=== PATIENT | male | born 1980 | race Caucasian/White ===

== ENCOUNTER 2016-09-16 20:08 | Emergency (ER) | payer OTHER ==
[2016-09-16] MEDS ORDERED: KETOROLAC 30 MG/ML VIAL (J1885) As Ordered ONE (23:01)
[2016-09-16 23:08] LABS: BASO # 0.2 K/mm3 (0.0-0.2); BASO % 2.1 % (0.0-1.0); EOS # 0.1 K/mm3 (0.0-0.50); EOS % 1.9 % (0.0-3.0); LARGE UNSTAINED CELL # 0.1 K/mm3 (0.0-0.4); LARGE UNSTAINED CELL % 1.7 % (0.0-4.0); LYMPH # 2.4 K/mm3 (1.5-4.5); LYMPH % 31.8 % (24.0-44.0); MEAN CORPUSCULAR HEMOGLOBIN 28.4 pg (27.0-33.0); MEAN CORPUSCULAR VOLUME 88.9 fl (80.0-96.0); MONO # 0.4 K/mm3 (0.0-0.8); MONO % 5.9 % (0.0-5.0); NEUTROPHILS % 56.6 % (36.0-66.0); PLATELET COUNT, AUTOMATED 188 k/mm3 (150-450); RED CELL DISTRIBUTION WIDTH 14.1 % (11.5-14.5)
[2016-09-16 23:24] LABS: ANION GAP 5 MEQ/L (8-16); BLOOD UREA NITROGEN 23 MG/DL (7-18); CALCIUM LEVEL 8.9 MG/DL (8.5-10.1); CARBON DIOXIDE LEVEL 30 MEQ/L (21-32); CHLORIDE LEVEL 105 MEQ/L (98-107); GLOMERULAR FILTRATION RATE > 60.0 (>60); GLUCOSE, FASTING 88 MG/DL (70-105); POTASSIUM SERUM 3.5 MEQ/L (3.5-5.1); SODIUM LEVEL 140 MEQ/L (136-145)
[2016-09-16] MEDS ORDERED: ISOVUE-370 76% 100ML VIAL (Q9967) As Ordered ONE (23:26)
--- NOTE | 2016-09-17 00:20 | REPUSA ---
CLINICAL HISTORY: Assess for inguinal hernia TECHNIQUE : A CT of the abdomen and pelvis was performed following the administration of oral and int ravenous contrast from the level of the heart to the proximal femoral diaphyses. Multiplanar reformat s were also obtained in coronal and sagittal projections. COMPARISON: None FINDINGS: LOWER CHEST: The lung bases are clear. Heart is normal in size. No pleural or pericardial effusion is seen. LIVER: The liver is normal in size and contour. No hepatic lesion is seen. The portal and hepatic vei ns are patent. BILIARY SYSTEM: No intrahepatic biliary ductal dilatation is seen. The common duct is normal in calib er. The gallbladder is unremarkable with no focal or diffuse wall thickening seen. No pericholecystic fluid is seen. No calcified biliary calculi are identified. PANCREAS: The pancreas is normal in size, contour and density. No solid or cystic pancreatic mass is seen. No pancreatic duct dilatation is seen. SPLEEN: The spleen is normal in size and without focal lesion. ADRENALS: The adrenal glands are unremarkable. KIDNEYS/URETERS: The kidneys are normal in size and enhance normally. No calcified renal or ureteral calculi are seen. No suspicious renal mass or hydronephrosis is seen. The ureters are not dilated. URINARY BLADDER: The urinary bladder is unremarkable without calcified stone, wall thickening or dive rticula seen. PROSTATE/SEMINAL VESICLES: Within normal size limits with no suspicious lesion. AORTA AND ILIAC ARTERIES: No aneurysmal dilatation of the aorta or iliac arteries is seen. LYMPH NODES: No enlarged adenopathy. GASTROINTESTINAL: Stomach, duodenum , and bowel normal in caliber. PERITONEUM/RETROPERITONEUM: No ascites or suspicious fluid collection, extraluminal air, or suspiciou s mass. ABDOMINAL/PELVIC WALL: No hernia is identified. OSSEOUS STRUCTURES/SOFT TISSUES: No suspicious osseous lesion, acute fracture, or soft tissue abnorma lity. IMPRESSION : No acute abdominal pelvic abnormality identified; specifically no evidence of inguinal hernia.
[2016-09-17] MEDS ORDERED: traMADol 50 MG TAB As Ordered ONE (00:52)
--- NOTE | 2016-09-17 00:59 | EDDOCDS ---
Physician Documentation [facility] Name: Jeff Fairchild Age: 36 yrs Sex: Male : 1980 Arrival Date: 09/16/2016 Time: 20:08 Bed I3 / M3 Private MD: Other - Complete Info On Cds Disposition: 09/17/16 00:47 Discharged to Home/Self Care. Impression: Strain of muscle, fascia and tendon of abdomen. - Condition is Stable. - Discharge Instructions: Groin Strain. - Prescriptions for Ultram 50 mg Oral Tablet - take 1 tablet by ORAL route every 6 hours As needed MDD: 4 tabs; 6 tablet. - Medication Reconciliation, Local Pharmacy Hours form. - Follow up: Other - Complete Info On Cds; When: 2 - 3 days; Reason: Recheck today's complaints, Continuance of care. - Problem is new. - Symptoms have improved. Historical: - Allergies: no known allergies; - Home Meds: 1. none - PMHx: none; - PSHx: Knee surgery- Left; - Social history: Smoking status: Patient states was never smoker of tobacco. No barriers to communication noted, The patient speaks fluent [place]ian. - Family history: Not pertinent. - : The pt / caregiver states he / she is not on anticoagulants. Home medication list is obtained from the patient. - Exposure Risk Screening:: None identified. Vital Signs: 09/16 20:10 BP 145 / 84; Pulse 84; Resp 18 S; Temp 97.7(O); Pulse Ox 98% on R/A; Weight 88 kg / gr2 194.01 lbs (R); Height 71 in. (180.34 cm) (R); Pain 6/10; 23:30 Pain 6/10; dsf 09/17 00:50 BP 111 / 64; Pulse 58; Resp 16; Temp 96.9; Pulse Ox 98% ; Pain 6/10; ajs 09/16 20:10 Body Mass Index 27.06 (88.00 kg, 180.34 cm) gr2 MDM: 09/16 22:48 Financial registration complete. gjb 22:48 [facility] Payment Agreement was scanned into [employer] and attached to record. gjb 22:54 IV Saline Lock ordered. ck7 22:54 ketorolac 30 mg IVP once ordered. ck7 22:54 NS 0.9% 1000 ml IV at bolus once ordered. ck7 22:55 CBC with Diff Ordered. EDMS 22:55 MED Profile Ordered. EDMS 22:56 CT ABD & PELVIS: IV Contrast Only Ordered. EDMS 23:46 CBC with Diff Reviewed. ck7 23:46 MED Profile Reviewed. ck7 09/17 00:48 traMADol 50mg- 4 pack 1 packets PO Per package directions; Dispense with patient. Take ck7 per package instructions. ordered. Administered Medications: 09/16 23:06 Drug: ketorolac 30 mg [ketorolac 30 mg/mL (1 mL) injection solution (1 mL)] Route: IVP; dsf Site: right antecubital; 23:30 Follow up: Pain 01/30 Adult dsf 23:06 Drug: NS 0.9% 1000 ml [sodium chloride 0.9 % injection solution] Route: IV; Rate: dsf bolus; Site: right antecubital; Signatures: Dispatcher [employer] Eden TamayoRN RN rs3 Sanjay Huff, RPA-C RPA-Cck7 Froylan Grullon RN RN jmb Beck, Gabriela gjb Fuller, Desiree RN dsf The chart was reviewed and I authenticate all verbal orders and agree with the evaluation and treatment provided.Attachments: 22:48 [facility] [place] Payment Agreement florence MTDD
--- NOTE | 2016-09-17 00:59 | EDDOCDS ---
Nurse's Notes [facility] Name: Jeff Fairchild Age: 36 yrs Sex: Male : 1980 Arrival Date: 09/16/2016 Time: 20:08 Bed I3 / M3 Private MD: Chuck - Complete Info On Cds Diagnosis: Strain of muscle, fascia and tendon of abdomen Presentation: 09/16 20:13 Presenting complaint: Patient states: right groin pain. heard pop while at gym doing rs3 push ups. Adult Sepsis Screening: The patient does not have new or worsening altered mentation. Patient's respiratory rate is less than 22. Systolic blood pressure is greater than 100. Patient has a qSOFA score of 0- Negative Sepsis Screen. Suicide/Homicide risk assessment- the patient denies having any suicidal and/or homicidal ideations and does not present with any other emotional, behavioral or mental health complaints. Status: The patient is an active duty services program manager. Transition of care: patient was not received from another setting of care. 20:13 Acuity: MLEL Level 4 rs3 20:13 Method Of Arrival: Walkin/Carried/Asstd rs3 22:54 Acuity level changed due to complexity of care. dsf 22:54 Acuity: MELL Level 3 dsf Triage Assessment: 20:14 General: Appears in no apparent distress. Pain: Pain currently is 6 out of 10 on a pain rs3 scale. Pt Declines HIV testing. GI: Reports lower abdominal pain. Historical: - Allergies: no known allergies; - Home Meds: 1. none - PMHx: none; - PSHx: Knee surgery- Left; - Social history: Smoking status: Patient states was never smoker of tobacco. No barriers to communication noted, The patient speaks fluent [place]. - Family history: Not pertinent. - : The pt / caregiver states he / she is not on anticoagulants. Home medication list is obtained from the patient. - Exposure Risk Screening:: None identified. Screenin/26 00:57 Screening information is obtained from the patient. Fall risk: No risks identified. jmb Assistance ADL's: requires no assistance with activities of daily living. Abuse/DV Screen: The patient / caregiver reports he/she is: not in a situation that causes fear, pain or injury. Nutritional screening: No deficits noted. Advance Directives: Currently, there is no health care proxy. There is no active DNR order. There is no living will. There is no Power of Flame Hardener. home support is adequate. Assessment: 09/16 23:07 Adult Sepsis Screening: The patient does not have new or worsening altered mentation. dsf Patient's respiratory rate is less than 22. Systolic blood pressure is greater than 100. Patient has a qSOFA score of 0- Negative Sepsis Screen. General: Appears in no apparent distress, Behavior is appropriate for age, cooperative. Pain: Location: right groin Pain currently is 6 out of 10 on a pain scale. Pain: Pain began 4 hours ago. Neurological: Level of Consciousness is awake, alert, Oriented to person, place, time. Cardiovascular: Capillary refill < 3 seconds Heart tones S1 S2 present. Respiratory: Airway is patent Respiratory effort is even, unlabored, Respiratory pattern is regular, symmetrical, Breath sounds are clear bilaterally. GI: Abdomen is non- distended Bowel sounds present X 4 quads. Abd is soft and non tender X 4 quads. Derm: Skin is pink, warm & dry. 23:38 General: Appears in no apparent distress, comfortable, Behavior is appropriate for age, jmb cooperative. General: Patient returned from CT scan. NO voiced complaints at this time. . Neurological: Level of Consciousness is awake, alert, obeys commands, Oriented to person, place, time, Speech is normal. Respiratory: Airway is patent Respiratory effort is even, unlabored, Respiratory pattern is regular, symmetrical. 09/17 00:02 General: Appears in no apparent distress, Behavior is appropriate for age, cooperative. dsf Pain: Location: right groin Pain currently is 6 out of 10 on a pain scale. Neurological: Level of Consciousness is awake, alert. Cardiovascular: Capillary refill < 3 seconds. Respiratory: Airway is patent Respiratory effort is even, unlabored, Respiratory pattern is regular, symmetrical. Derm: Skin is pink, warm & dry. 00:39 General: Appears in no apparent distress, comfortable, Behavior is appropriate for age, jmb cooperative. General: Patient sitting on stretcher, appears comfortable. NO voiced complaints at this time. . Neurological: Level of Consciousness is awake, alert, obeys commands, Oriented to person, place, time. Respiratory: Airway is patent Respiratory effort is even, unlabored, Respiratory pattern is regular, symmetrical. 00:57 General: Patient instructed on discharge instructions. Patient asked if there were any b questions regarding discharge, patient stated no. IV discontinued per hospital policy. Patient signed discharged instructions. Patient discharged in stable condition. . Vital Signs: 09/16 20:10 BP 145 / 84; Pulse 84; Resp 18 S; Temp 97.7(O); Pulse Ox 98% on R/A; Weight 88 kg (R); gr2 Height 71 in. (180.34 cm) (R); Pain 6/10; 23:30 Pain 6/10; dsf 09/17 00:50 BP 111 / 64; Pulse 58; Resp 16; Temp 96.9; Pulse Ox 98% ; Pain 6/10; ajs 09/16 20:10 Body Mass Index 27.06 (88.00 kg, 180.34 cm) gr2 Vitals: 09/16 20:10 Log In Time: September 16, 2016 at 20:10. gr2 ED Course: 20:09 Patient visited by Gene Ross. gr2 20:09 Patient moved to Waiting gr2 20:10 Other - Complete Info On Cds is Private Physician. gr2 20:11 Patient visited by Gene Ross. gr2 20:12 Patient moved to Pre RCE gr2 20:14 Triage Initiated rs3 21:38 Patient moved to Triage 3 ttb 22:35 [facility] ck7 22:35 Christopher Wheat MD is Attending Physician. ck7 22:35 Patient visited by Sanjay Huff RPA-C. ck7 22:48 [facility] Payment Agreement was scanned into [email or web address] and attached to record. gjb 22:52 Patient name changed from Jeff\S\Alexi\S\Hustad\S\ to Jeff\S\ \S\Hustad. EDMS 22:52 Patient moved to I3 / M3 km 23:07 Inserted saline lock: 20 gauge in right antecubital area The patient tolerated the dsf procedure well. 23:08 Patient visited by Anabelle Knott,BISHOP. dsf 23:39 Patient visited by Froylan Grullon,BISHOP. riverab 09/17 00:03 Patient visited by Anabelle Knott RN. dsf 00:40 Patient visited by Froylan Grullon RN. jmb 00:46 Other - Complete Info On Cds is Referral Physician. ck7 00:51 Patient visited by Melissa Elizabeth. ajs 00:54 CT ABD & PELVIS: IV Contrast Only Returned. EDMS 00:57 The patient / caregiver is instructed regarding the plan of care and ED course. jmb 00:57 Discontinued lock intact, bleeding controlled, pressure dressing applied, No jmb redness/swelling at site. No procedures done that require assistance. Administered Medications: 09/16 23:06 Drug: ketorolac 30 mg [ketorolac 30 mg/mL (1 mL) injection solution (1 mL)] Route: IVP; dsf Site: right antecubital; 23:30 Follow up: Pain 01/30 Adult dsf 23:06 Drug: NS 0.9% 1000 ml [sodium chloride 0.9 % injection solution] Route: IV; Rate: dsf bolus; Site: right antecubital; Order Results: Lab Order: CBC with Diff; SPEC'M 09/16/16 22:56 Test: WHITE BLOOD COUNT; Value: 7.0; Range: 4.0-10.0; Units: K/mm3; Status: F Test: RED BLOOD COUNT; Value: 5.39; Range: 4.30-6.10; Units: M/mm3; Status: F Test: HEMOGLOBIN; Value: 15.3; Range: 14.0-18.0; Units: g/dl; Status: F Test: HEMATOCRIT; Value: 47.9; Range: 42.0-52.0; Units: %; Status: F Test: MEAN CORPUSCULAR VOLUME; Value: 88.9; Range: 80.0-96.0; Units: fl; Status: F Test: MEAN CORPUSCULAR HEMOGLOBIN; Value: 28.4; Range: 27.0-33.0; Units: pg; Status: F Test: MEAN CORPUSCULAR HGB CONC; Value: 32.0; Range: 32.0-36.5; Units: g/dl; Status: F Test: RED CELL DISTRIBUTION WIDTH; Value: 14.1; Range: 11.5-14.5; Units: %; Status: F Test: PLATELET COUNT, AUTOMATED; Value: 188; Range: 150-450; Units: k/mm3; Status: F Test: NEUTROPHILS %; Value: 56.6; Range: 36.0-66.0; Units: %; Status: F Test: LYMPH %; Value: 31.8; Range: 24.0-44.0; Units: %; Status: F Test: MONO %; Value: 5.9; Range: 0.0-5.0; Abnormal: Above high normal; Units: %; Status: F Test: EOS %; Value: 1.9; Range: 0.0-3.0; Units: %; Status: F Test: BASO %; Value: 2.1; Range: 0.0-1.0; Abnormal: Above high normal; Units: %; Status: F Test: LARGE UNSTAINED CELL %; Value: 1.7; Range: 0.0-4.0; Units: %; Status: F Test: NEUTROPHILS #; Value: 4.0; Range: 1.8-7.7; Units: K/mm3; Status: F Test: LYMPH #; Value: 2.4; Range: 1.5-4.5; Units: K/mm3; Status: F Test: MONO #; Value: 0.4; Range: 0.0-0.8; Units: K/mm3; Status: F Test: EOS #; Value: 0.1; Range: 0.0-0.50; Units: K/mm3; Status: F Test: BASO #; Value: 0.2; Range: 0.0-0.2; Units: K/mm3; Status: F Test: LARGE UNSTAINED CELL #; Value: 0.1; Range: 0.0-0.4; Units: K/mm3; Status: F Lab Order: MED Profile; SPEC'M 09/16/16 22:56 Test: GLUCOSE, FASTING; Value: 88; Range: 70-105; Units: MG/DL; Status: F Test: BLOOD UREA NITROGEN; Value: 23; Range: 7-18; Abnormal: Above high normal; Units: MG/DL; Status: F Test: CREATININE FOR GFR; Value: 1.30; Range: 0.70-1.30; Units: MG/DL; Status: F Test: GLOMERULAR FILTRATION RATE; Value: > 60.0; Range: >60; Status: F Test: SODIUM LEVEL; Value: 140; Range: 136-145; Units: MEQ/L; Status: F Test: POTASSIUM SERUM; Value: 3.5; Range: 3.5-5.1; Units: MEQ/L; Status: F Test: CHLORIDE LEVEL; Value: 105; Range: 98-107; Units: MEQ/L; Status: F Test: CARBON DIOXIDE LEVEL; Value: 30; Range: 21-32; Units: MEQ/L; Status: F Test: ANION GAP; Value: 5; Range: 8-16; Abnormal: Below low normal; Units: MEQ/L; Status: F Test: CALCIUM LEVEL; Value: 8.9; Range: 8.5-10.1; Units: MG/DL; Status: F Test Note: ; Units are mL/min/1.73 m2 Chronic Kidney Disease Staging per NKF: Stage I & II GFR >=60 Normal to Mildly Decreased Stage III GFR 30-59 Moderately Decreased Stage IV GFR 15-29 Severely Decreased Stage V GFR <15 Very Little GFR Left ESRD GFR <15 on BAG PRESSER Radiology Order: CT ABD & PELVIS: IV Contrast Only Test: CT ABD & PELVIS: IV Contrast Only REASON FOR EXAMINATION: R/O RIGHT INGUINAL HERNIA; ; CLINICAL HISTORY: Assess for inguinal hernia; TECHNIQUE : A CT of the abdomen and pelvis was performed following the administration of oral and int; ravenous contrast from the level of the heart to the proximal femoral diaphyses. Multiplanar reformat; s were also obtained in coronal and sagittal projections.; COMPARISON: None; FINDINGS:; LOWER CHEST: The lung bases are clear. Heart is normal in size. No pleural or pericardial effusion is; seen.; LIVER: The liver is normal in size and contour. No hepatic lesion is seen. The portal and hepatic vei; ns are patent.; BILIARY SYSTEM: No intrahepatic biliary ductal dilatation is seen. The common duct is normal in calib; er. The gallbladder is unremarkable with no focal or diffuse wall thickening seen. No pericholecystic; fluid is seen. No calcified biliary calculi are identified.; PANCREAS: The pancreas is normal in size, contour and density. No solid or cystic pancreatic mass is; seen. No pancreatic duct dilatation is seen.; SPLEEN: The spleen is normal in size and without focal lesion.; ADRENALS: The adrenal glands are unremarkable.; KIDNEYS/URETERS: The kidneys are normal in size and enhance normally. No calcified renal or ureteral; calculi are seen. No suspicious renal mass or hydronephrosis is seen. The ureters are not dilated.; URINARY BLADDER: The urinary bladder is unremarkable without calcified stone, wall thickening or dive; rticula seen.; PROSTATE/SEMINAL VESICLES: Within normal size limits with no suspicious lesion.; AORTA AND ILIAC ARTERIES: No aneurysmal dilatation of the aorta or iliac arteries is seen.; LYMPH NODES: No enlarged adenopathy.; GASTROINTESTINAL: Stomach, duodenum , and bowel normal in caliber.; PERITONEUM/RETROPERITONEUM: No ascites or suspicious fluid collection, extraluminal air, or suspiciou; s mass.; ABDOMINAL/PELVIC WALL: No hernia is identified.; OSSEOUS STRUCTURES/SOFT TISSUES: No suspicious osseous lesion, acute fracture, or soft tissue abnorma; lity.; IMPRESSION :; No acute abdominal pelvic abnormality identified; specifically no evidence of inguinal hernia.; ; Outcome: 09/17 00:47 Discharge ordered by Provider. ck7 00:57 Discharge Assessment: Patient awake, alert and oriented x 3. No cognitive and/or jmb functional deficits noted. Patient verbalized understanding of disposition instructions. Patient awake and alert. obeys commands, Oriented to person, place and time. Patient verbalized understanding of disposition instructions. Patient has no functional deficits. patient administered narcotics - no. The following High Risk Discharge criteria are identified: None. Discharged to home ambulatory. Condition: stable Condition: improved. Discharge instructions given to patient, Instructed on discharge instructions, follow up and referral plans. medication usage, Demonstrated understanding of instructions, medications, Pt was receptive of discharge instructions/ teaching. Prescriptions given X 1. Ultrasound Study completed. Property sent home with patient. 00:59 Patient left the ED. diann Signatures: Dispatcher [employer] EDMS Hannah Miller RN RN [id number] Eden HanRN RN rs3 Anabelle Knott RN RN Melissa Appiah Christopher, RPA-C RPA-Cck7 Davida Cisneros RN RN ttb Gene Ross gr2 Froylan Grullon RN RN jmb Beck, Gabriela gjb MTDD
--- NOTE | 2016-09-19 02:00 | EDDOCDS ---
Nurse's Notes [facility] Name: Jeff Fairchild Age: 36 yrs Sex: Male : 1980 Arrival Date: 09/16/2016 Time: 20:08 Bed I3 / M3 Private MD: Chuck - Complete Info On Cds Diagnosis: Strain of muscle, fascia and tendon of abdomen Presentation: 09/16 20:13 Presenting complaint: Patient states: right groin pain. heard pop while at gym doing rs3 push ups. Adult Sepsis Screening: The patient does not have new or worsening altered mentation. Patient's respiratory rate is less than 22. Systolic blood pressure is greater than 100. Patient has a qSOFA score of 0- Negative Sepsis Screen. Suicide/Homicide risk assessment- the patient denies having any suicidal and/or homicidal ideations and does not present with any other emotional, behavioral or mental health complaints. 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 Transition of care: patient was not received from another setting of care. 20:13 Acuity: MELL Level 4 rs3 20:13 Method Of Arrival: Walkin/Carried/Asstd rs3 22:54 Acuity level changed due to complexity of care. dsf 22:54 Acuity: MELL Level 3 dsf Triage Assessment: 20:14 General: Appears in no apparent distress. Pain: Pain currently is 6 out of 10 on a pain rs3 scale. Pt Declines HIV testing. GI: Reports lower abdominal pain. Historical: - Allergies: no known allergies; - Home Meds: 1. none - PMHx: none; - PSHx: Knee surgery- Left; - Social history: Smoking status: Patient states was never smoker of tobacco. No barriers to communication noted, The patient speaks fluent Ukrainian. - Family history: Not pertinent. - : The pt / caregiver states he / she is not on anticoagulants. Home medication list is obtained from the patient. - Exposure Risk Screening:: None identified. Screenin/26 00:57 Screening information is obtained from the patient. Fall risk: No risks identified. jmb Assistance ADL's: requires no assistance with activities of daily living. Abuse/DV Screen: The patient / caregiver reports he/she is: not in a situation that causes fear, pain or injury. Nutritional screening: No deficits noted. Advance Directives: Currently, there is no health care proxy. There is no active DNR order. There is no living will. There is no Power of Lead Quality Technician. home support is adequate. Assessment: 09/16 23:07 Adult Sepsis Screening: The patient does not have new or worsening altered mentation. dsf Patient's respiratory rate is less than 22. Systolic blood pressure is greater than 100. Patient has a qSOFA score of 0- Negative Sepsis Screen. General: Appears in no apparent distress, Behavior is appropriate for age, cooperative. Pain: Location: right groin Pain currently is 6 out of 10 on a pain scale. Pain: Pain began 4 hours ago. Neurological: Level of Consciousness is awake, alert, Oriented to person, place, time. Cardiovascular: Capillary refill < 3 seconds Heart tones S1 S2 present. Respiratory: Airway is patent Respiratory effort is even, unlabored, Respiratory pattern is regular, symmetrical, Breath sounds are clear bilaterally. GI: Abdomen is non- distended Bowel sounds present X 4 quads. Abd is soft and non tender X 4 quads. Derm: Skin is pink, warm & dry. 23:38 General: Appears in no apparent distress, comfortable, Behavior is appropriate for age, jmb cooperative. General: Patient returned from CT scan. NO voiced complaints at this time. . Neurological: Level of Consciousness is awake, alert, obeys commands, Oriented to person, place, time, Speech is normal. Respiratory: Airway is patent Respiratory effort is even, unlabored, Respiratory pattern is regular, symmetrical. 09/17 00:02 General: Appears in no apparent distress, Behavior is appropriate for age, cooperative. dsf Pain: Location: right groin Pain currently is 6 out of 10 on a pain scale. Neurological: Level of Consciousness is awake, alert. Cardiovascular: Capillary refill < 3 seconds. Respiratory: Airway is patent Respiratory effort is even, unlabored, Respiratory pattern is regular, symmetrical. Derm: Skin is pink, warm & dry. 00:39 General: Appears in no apparent distress, comfortable, Behavior is appropriate for age, jmb cooperative. General: Patient sitting on stretcher, appears comfortable. NO voiced complaints at this time. . Neurological: Level of Consciousness is awake, alert, obeys commands, Oriented to person, place, time. Respiratory: Airway is patent Respiratory effort is even, unlabored, Respiratory pattern is regular, symmetrical. 00:57 General: Patient instructed on discharge instructions. Patient asked if there were any b questions regarding discharge, patient stated no. IV discontinued per hospital policy. Patient signed discharged instructions. Patient discharged in stable condition. . Vital Signs: 09/16 20:10 BP 145 / 84; Pulse 84; Resp 18 S; Temp 97.7(O); Pulse Ox 98% on R/A; Weight 88 kg (R); gr2 Height 71 in. (180.34 cm) (R); Pain 6/10; 23:30 Pain 6/10; dsf 09/17 00:50 BP 111 / 64; Pulse 58; Resp 16; Temp 96.9; Pulse Ox 98% ; Pain 6/10; ajs 09/16 20:10 Body Mass Index 27.06 (88.00 kg, 180.34 cm) gr2 Vitals: 09/16 20:10 Log In Time: September 16, 2016 at 20:10. gr2 ED Course: 20:09 Patient visited by Gene Ross. gr2 20:09 Patient moved to Waiting gr2 20:10 Other - Complete Info On Cds is Private Physician. gr2 20:11 Patient visited by Gene Ross. gr2 20:12 Patient moved to Pre RCE gr2 20:14 Triage Initiated rs3 21:38 Patient moved to Triage 3 ttb 22:35 [facility] ck7 22:35 Christopher Wheat MD is Attending Physician. ck7 22:35 Patient visited by Sanjay Huff RPA-C. ck7 22:48 [facility] Payment Agreement was scanned into [employer] and attached to record. gjb 22:52 Patient name changed from Jeff\S\Alexi\S\Hustad\S\ to Jeff\S\ \S\Hustad. EDMS 22:52 Patient moved to I3 / M3 km 23:07 Inserted saline lock: 20 gauge in right antecubital area The patient tolerated the dsf procedure well. 23:08 Patient visited by Anabelle Knott,BISHOP. dsf 23:39 Patient visited by Froylan Grullon,BISHOP. riverab 09/17 00:03 Patient visited by Anabelle Knott RN. dsf 00:40 Patient visited by Froylan Grullon RN. jmb 00:46 Other - Complete Info On Cds is Referral Physician. ck7 00:51 Patient visited by Melissa Elizabeth. ajs 00:54 CT ABD & PELVIS: IV Contrast Only Returned. EDMS 00:57 The patient / caregiver is instructed regarding the plan of care and ED course. jmb 00:57 Discontinued lock intact, bleeding controlled, pressure dressing applied, No jmb redness/swelling at site. No procedures done that require assistance. 10:56 T-Sheet-- Draft Copy was scanned into [employer] and attached to record. gb Administered Medications: 09/16 23:06 Drug: ketorolac 30 mg [ketorolac 30 mg/mL (1 mL) injection solution (1 mL)] Route: IVP; dsf Site: right antecubital; 23:30 Follow up: Pain 01/30 Adult dsf 23:06 Drug: NS 0.9% 1000 ml [sodium chloride 0.9 % injection solution] Route: IV; Rate: dsf bolus; Site: right antecubital; Order Results: Lab Order: CBC with Diff; SPEC'M 09/16/16 22:56 Test: WHITE BLOOD COUNT; Value: 7.0; Range: 4.0-10.0; Units: K/mm3; Status: F Test: RED BLOOD COUNT; Value: 5.39; Range: 4.30-6.10; Units: M/mm3; Status: F Test: HEMOGLOBIN; Value: 15.3; Range: 14.0-18.0; Units: g/dl; Status: F Test: HEMATOCRIT; Value: 47.9; Range: 42.0-52.0; Units: %; Status: F Test: MEAN CORPUSCULAR VOLUME; Value: 88.9; Range: 80.0-96.0; Units: fl; Status: F Test: MEAN CORPUSCULAR HEMOGLOBIN; Value: 28.4; Range: 27.0-33.0; Units: pg; Status: F Test: MEAN CORPUSCULAR HGB CONC; Value: 32.0; Range: 32.0-36.5; Units: g/dl; Status: F Test: RED CELL DISTRIBUTION WIDTH; Value: 14.1; Range: 11.5-14.5; Units: %; Status: F Test: PLATELET COUNT, AUTOMATED; Value: 188; Range: 150-450; Units: k/mm3; Status: F Test: NEUTROPHILS %; Value: 56.6; Range: 36.0-66.0; Units: %; Status: F Test: LYMPH %; Value: 31.8; Range: 24.0-44.0; Units: %; Status: F Test: MONO %; Value: 5.9; Range: 0.0-5.0; Abnormal: Above high normal; Units: %; Status: F Test: EOS %; Value: 1.9; Range: 0.0-3.0; Units: %; Status: F Test: BASO %; Value: 2.1; Range: 0.0-1.0; Abnormal: Above high normal; Units: %; Status: F Test: LARGE UNSTAINED CELL %; Value: 1.7; Range: 0.0-4.0; Units: %; Status: F Test: NEUTROPHILS #; Value: 4.0; Range: 1.8-7.7; Units: K/mm3; Status: F Test: LYMPH #; Value: 2.4; Range: 1.5-4.5; Units: K/mm3; Status: F Test: MONO #; Value: 0.4; Range: 0.0-0.8; Units: K/mm3; Status: F Test: EOS #; Value: 0.1; Range: 0.0-0.50; Units: K/mm3; Status: F Test: BASO #; Value: 0.2; Range: 0.0-0.2; Units: K/mm3; Status: F Test: LARGE UNSTAINED CELL #; Value: 0.1; Range: 0.0-0.4; Units: K/mm3; Status: F Lab Order: MED Profile; SPEC'M 09/16/16 22:56 Test: GLUCOSE, FASTING; Value: 88; Range: 70-105; Units: MG/DL; Status: F Test: BLOOD UREA NITROGEN; Value: 23; Range: 7-18; Abnormal: Above high normal; Units: MG/DL; Status: F Test: CREATININE FOR GFR; Value: 1.30; Range: 0.70-1.30; Units: MG/DL; Status: F Test: GLOMERULAR FILTRATION RATE; Value: > 60.0; Range: >60; Status: F Test: SODIUM LEVEL; Value: 140; Range: 136-145; Units: MEQ/L; Status: F Test: POTASSIUM SERUM; Value: 3.5; Range: 3.5-5.1; Units: MEQ/L; Status: F Test: CHLORIDE LEVEL; Value: 105; Range: 98-107; Units: MEQ/L; Status: F Test: CARBON DIOXIDE LEVEL; Value: 30; Range: 21-32; Units: MEQ/L; Status: F Test: ANION GAP; Value: 5; Range: 8-16; Abnormal: Below low normal; Units: MEQ/L; Status: F Test: CALCIUM LEVEL; Value: 8.9; Range: 8.5-10.1; Units: MG/DL; Status: F Test Note: ; Units are mL/min/1.73 m2 Chronic Kidney Disease Staging per NKF: Stage I & II GFR >=60 Normal to Mildly Decreased Stage III GFR 30-59 Moderately Decreased Stage IV GFR 15-29 Severely Decreased Stage V GFR <15 Very Little GFR Left ESRD GFR <15 on PROCEDURES ANALYST Radiology Order: CT ABD & PELVIS: IV Contrast Only Test: CT ABD & PELVIS: IV Contrast Only REASON FOR EXAMINATION: R/O RIGHT INGUINAL HERNIA; ; CLINICAL HISTORY: Assess for inguinal hernia; TECHNIQUE : A CT of the abdomen and pelvis was performed following the administration of oral and int; ravenous contrast from the level of the heart to the proximal femoral diaphyses. Multiplanar reformat; s were also obtained in coronal and sagittal projections.; COMPARISON: None; FINDINGS:; LOWER CHEST: The lung bases are clear. Heart is normal in size. No pleural or pericardial effusion is; seen.; LIVER: The liver is normal in size and contour. No hepatic lesion is seen. The portal and hepatic vei; ns are patent.; BILIARY SYSTEM: No intrahepatic biliary ductal dilatation is seen. The common duct is normal in calib; er. The gallbladder is unremarkable with no focal or diffuse wall thickening seen. No pericholecystic; fluid is seen. No calcified biliary calculi are identified.; PANCREAS: The pancreas is normal in size, contour and density. No solid or cystic pancreatic mass is; seen. No pancreatic duct dilatation is seen.; SPLEEN: The spleen is normal in size and without focal lesion.; ADRENALS: The adrenal glands are unremarkable.; KIDNEYS/URETERS: The kidneys are normal in size and enhance normally. No calcified renal or ureteral; calculi are seen. No suspicious renal mass or hydronephrosis is seen. The ureters are not dilated.; URINARY BLADDER: The urinary bladder is unremarkable without calcified stone, wall thickening or dive; rticula seen.; PROSTATE/SEMINAL VESICLES: Within normal size limits with no suspicious lesion.; AORTA AND ILIAC ARTERIES: No aneurysmal dilatation of the aorta or iliac arteries is seen.; LYMPH NODES: No enlarged adenopathy.; GASTROINTESTINAL: Stomach, duodenum , and bowel normal in caliber.; PERITONEUM/RETROPERITONEUM: No ascites or suspicious fluid collection, extraluminal air, or suspiciou; s mass.; ABDOMINAL/PELVIC WALL: No hernia is identified.; OSSEOUS STRUCTURES/SOFT TISSUES: No suspicious osseous lesion, acute fracture, or soft tissue abnorma; lity.; IMPRESSION :; No acute abdominal pelvic abnormality identified; specifically no evidence of inguinal hernia.; ; Outcome: 09/17 00:47 Discharge ordered by Provider. ck7 00:57 Discharge Assessment: Patient awake, alert and oriented x 3. No cognitive and/or jmb functional deficits noted. Patient verbalized understanding of disposition instructions. Patient awake and alert. obeys commands, Oriented to person, place and time. Patient verbalized understanding of disposition instructions. Patient has no functional deficits. patient administered narcotics - no. The following High Risk Discharge criteria are identified: None. Discharged to home ambulatory. Condition: stable Condition: improved. Discharge instructions given to patient, Instructed on discharge instructions, follow up and referral plans. medication usage, Demonstrated understanding of instructions, medications, Pt was receptive of discharge instructions/ teaching. Prescriptions given X 1. Ultrasound Study completed. Property sent home with patient. 00:59 Patient left the ED. jmb Signatures: Dispatcher [employer] EDMS Hannah Miller, RN RN kmg1 Pia Guzman, Reg Reg Eden DuckworthRN RN rs3 Anabelle Knott RN RN dsf Melissa Elizabeth Christopher, REBECA-C RPA-Cck7 Davida Cisneros RN RN ttb Gene Ross gr2 Froylan Grullon,RN RN Juani Velez Chart Complete MTDD
--- NOTE | 2016-09-19 02:00 | EDDOCDS ---
Physician Documentation [facility] Name: Jeff Fairchild Age: 36 yrs Sex: Male : 1980 Arrival Date: 09/16/2016 Time: 20:08 Bed I3 / M3 Private MD: Other - Complete Info On Cds Disposition: 09/17/16 00:47 Discharged to Home/Self Care. Impression: Strain of muscle, fascia and tendon of abdomen. - Condition is Stable. - Discharge Instructions: Groin Strain. - Prescriptions for Ultram 50 mg Oral Tablet - take 1 tablet by ORAL route every 6 hours As needed MDD: 4 tabs; 6 tablet. - Medication Reconciliation, Local Pharmacy Hours form. - Follow up: Other - Complete Info On Cds; When: 2 - 3 days; Reason: Recheck today's complaints, Continuance of care. - Problem is new. - Symptoms have improved. Historical: - Allergies: no known allergies; - Home Meds: 1. none - PMHx: none; - PSHx: Knee surgery- Left; - Social history: Smoking status: Patient states was never smoker of tobacco. No barriers to communication noted, The patient speaks fluent Lebanese. - Family history: Not pertinent. - : The pt / caregiver states he / she is not on anticoagulants. Home medication list is obtained from the patient. - Exposure Risk Screening:: None identified. Vital Signs: 09/16 20:10 BP 145 / 84; Pulse 84; Resp 18 S; Temp 97.7(O); Pulse Ox 98% on R/A; Weight 88 kg / gr2 194.01 lbs (R); Height 71 in. (180.34 cm) (R); Pain 6/10; 23:30 Pain 6/10; dsf 09/17 00:50 BP 111 / 64; Pulse 58; Resp 16; Temp 96.9; Pulse Ox 98% ; Pain 6/10; ajs 09/16 20:10 Body Mass Index 27.06 (88.00 kg, 180.34 cm) gr2 MDM: 09/16 22:48 Financial registration complete. gjb 22:48 [facility] Payment Agreement was scanned into [employer] and attached to record. gjb 22:54 IV Saline Lock ordered. ck7 22:54 ketorolac 30 mg IVP once ordered. ck7 22:54 NS 0.9% 1000 ml IV at bolus once ordered. ck7 22:55 CBC with Diff Ordered. EDMS 22:55 MED Profile Ordered. EDMS 22:56 CT ABD & PELVIS: IV Contrast Only Ordered. EDMS 23:46 CBC with Diff Reviewed. ck7 23:46 MED Profile Reviewed. ck7 09/17 00:48 traMADol 50mg- 4 pack 1 packets PO Per package directions; Dispense with patient. Take ck7 per package instructions. ordered. 10:56 T-Sheet-- Draft Copy was scanned into [employer] and attached to record. gb Administered Medications: 09/16 23:06 Drug: ketorolac 30 mg [ketorolac 30 mg/mL (1 mL) injection solution (1 mL)] Route: IVP; dsf Site: right antecubital; 23:30 Follow up: Pain 01/30 Adult dsf 23:06 Drug: NS 0.9% 1000 ml [sodium chloride 0.9 % injection solution] Route: IV; Rate: dsf bolus; Site: right antecubital; Signatures: Dispatcher [employer] EDMS Pia Guzman, Reg Reg gb Eden Han,RN RN rs3 Sanjay Huff, RPA-C RPA-Cck7 Froylan GrullonRN Juani Martinez Desiree RN dsf The chart was reviewed and I authenticate all verbal orders and agree with the evaluation and treatment provided.Attachments: 22:48 [facility] Payment Agreement [facility] 09/17 10:56 T-Sheet-- Draft Copy gb Chart Complete MTDD
--- NOTE | 2016-09-19 02:00 | EDDOCDS ---
Physician Documentation [facility] Name: Jeff Fairchild Age: 36 yrs Sex: Male : 1980 Arrival Date: 09/16/2016 Time: 20:08 Bed I3 / M3 Private MD: Other - Complete Info On Cds Disposition: 09/17/16 00:47 Discharged to Home/Self Care. Impression: Strain of muscle, fascia and tendon of abdomen. - Condition is Stable. - Discharge Instructions: Groin Strain. - Prescriptions for Ultram 50 mg Oral Tablet - take 1 tablet by ORAL route every 6 hours As needed MDD: 4 tabs; 6 tablet. - Medication Reconciliation, Local Pharmacy Hours form. - Follow up: Other - Complete Info On Cds; When: 2 - 3 days; Reason: Recheck today's complaints, Continuance of care. - Problem is new. - Symptoms have improved. Historical: - Allergies: no known allergies; - Home Meds: 1. none - PMHx: none; - PSHx: Knee surgery- Left; - Social history: Smoking status: Patient states was never smoker of tobacco. No barriers to communication noted, The patient speaks fluent Finnish. - Family history: Not pertinent. - : The pt / caregiver states he / she is not on anticoagulants. Home medication list is obtained from the patient. - Exposure Risk Screening:: None identified. Vital Signs: 09/16 20:10 BP 145 / 84; Pulse 84; Resp 18 S; Temp 97.7(O); Pulse Ox 98% on R/A; Weight 88 kg / gr2 194.01 lbs (R); Height 71 in. (180.34 cm) (R); Pain 6/10; 23:30 Pain 6/10; dsf 09/17 00:50 BP 111 / 64; Pulse 58; Resp 16; Temp 96.9; Pulse Ox 98% ; Pain 6/10; ajs 09/16 20:10 Body Mass Index 27.06 (88.00 kg, 180.34 cm) gr2 MDM: 09/16 22:48 Financial registration complete. gjb 22:48 [facility] Payment Agreement was scanned into [employer] and attached to record. gjb 22:54 IV Saline Lock ordered. ck7 22:54 ketorolac 30 mg IVP once ordered. ck7 22:54 NS 0.9% 1000 ml IV at bolus once ordered. ck7 22:55 CBC with Diff Ordered. EDMS 22:55 MED Profile Ordered. EDMS 22:56 CT ABD & PELVIS: IV Contrast Only Ordered. EDMS 23:46 CBC with Diff Reviewed. ck7 23:46 MED Profile Reviewed. ck7 09/17 00:48 traMADol 50mg- 4 pack 1 packets PO Per package directions; Dispense with patient. Take ck7 per package instructions. ordered. 10:56 T-Sheet-- Draft Copy was scanned into [employer] and attached to record. gb Administered Medications: 09/16 23:06 Drug: ketorolac 30 mg [ketorolac 30 mg/mL (1 mL) injection solution (1 mL)] Route: IVP; dsf Site: right antecubital; 23:30 Follow up: Pain 01/30 Adult dsf 23:06 Drug: NS 0.9% 1000 ml [sodium chloride 0.9 % injection solution] Route: IV; Rate: dsf bolus; Site: right antecubital; Signatures: Dispatcher [employer] EDMS Pia Guzman, Reg Reg gb Eden Han,RN RN rs3 Sanjay Huff, RPA-C RPA-Cck7 Froylan GrullonRN Juani Martinez Desiree RN dsf The chart was reviewed and I authenticate all verbal orders and agree with the evaluation and treatment provided.Attachments: 22:48 [facility] Payment Agreement [facility] 09/17 10:56 T-Sheet-- Draft Copy gb Chart Complete MTDD
== END 2016-09-17 00:59 | disposition home or self-care (01) ==
LOC: M ED 20:08
DX: S39.011A Strain of muscle, fascia and tendon of abdomen, initial encounter (principal); X50.0XXA Overexertion from strenuous movement or load, initial encounter; Y92.89 Other specified places as the place of occurrence of the external cause; Y93.B1 Activity, exercise machines primarily for muscle strengthening; Y99.8 Other external cause status
CPT/HCPCS: 74177; 80048; 85025; 96374; 99284; J1885; Q9967